=== PATIENT | male | born 1970 ===

== ENCOUNTER 2019-04-01 14:00 | Emergency (ER) | payer OTHER ==
[~2019-04-01] VITALS: Ht 182.9 cm; Wt 74.8 kg
[2019-04-01] MEDS ORDERED: ANALPRAM HC 2.530 GM RECTAL (21:45)
== END 2019-04-01 22:02 | disposition home or self-care (01) ==
LOC: ER 14:00
DX: K62.5 Hemorrhage of anus and rectum (principal)

== ENCOUNTER 2021-04-16 17:08 | Emergency (ER) | payer OTHER ==
[~2021-04-16] VITALS: Ht 182.9 cm; Wt 77.1 kg
[~2021-04-16 17:08] MED LIST: ANALPRAM HC 2.530 GM RECTAL
== END 2021-04-16 20:55 | disposition home or self-care (01) ==
LOC: ER 17:08
DX: U07.1 COVID-19 (principal)

== ENCOUNTER 2023-03-19 13:03 | Emergency (ER) | payer OTHER ==
[~2023-03-19] VITALS: Ht 182.9 cm; Wt 73.9 kg
== END 2023-03-19 18:24 | disposition home or self-care (01) ==
LOC: ER 13:03
DX: H57.12 Ocular pain, left eye (principal); T15.90XA Foreign body on external eye, part unspecified, unspecified eye, initial encounter; Z88.0 Allergy status to penicillin; Z88.6 Allergy status to analgesic agent; Z91.018 Allergy to other foods